=== PATIENT | male | born 1985 | race Caucasian/White ===

== ENCOUNTER 2017-01-18 14:33 | Emergency (ER) | payer OTHER ==
--- NOTE | 2017-01-18 14:42 | PDOC ---
History of Present Illness - General History Source: Patient, EMS Exam Limitations: No Limitations - History of Present Illness Initial Comments: 01/18/17 16:14 The patient is a 31 year old male brought via EMS, with a significant past medical history of, who presents to the emergency department overdosing on Heroin today. EMS notes that the patient's girlfriend found the patient unresponsive with a needle in his arm after she got out the shower, which is when she called EMS. Upon arrival as per EMS, they administered 1 mg of Narcan, which awoke the patient. The patient has a history of Heroin use, with the last one being 2 months ago. He notes that he has had overdose episodes in the past. The patient denies chest pain, shortness of breath, headache and dizziness. Denies fever, chills, nausea, vomit, diarrhea and constipation. Allergies: None Past surgical history: None reported Social history: Heroin use. Tobacco use. No alcohol use. <Caleb Rothman - Last Filed: 01/18/17 16:14> <Serafin Caldwell - Last Filed: 01/23/17 16:20> - General Chief Complaint: Overdose Stated Complaint: OVERDOSE Time Seen by Provider: 01/18/17 14:41 Past History <Caleb Rothman - Last Filed: 01/18/17 16:14> - Psycho/Social/Smoking Cessation Hx Anxiety: No Suicidal Ideation: No Smoking Status: Yes Smoking History: Current every day smoker Number of Cigarettes Smoked Daily: 7 Information on smoking cessation initiated: No 'Breaking Loose' booklet given: 02/13/14 Hx Alcohol Use: No <Serafin Caldwell - Last Filed: 01/23/17 16:20> - Past Medical History Allergies/Adverse Reactions: Allergies Allergy/AdvReac Type Severity Reaction Status Date / Time No Known Allergies Allergy Verified 01/18/17 14:38 Home Medications: Ambulatory Orders No Home Medications 0 dose .ROUTE UTDICT 02/13/14 Review of Systems - Review of Systems Able to Perform ROS?: Yes Comments:: 01/18/17 16:14 CONSTITUTIONAL: No fever, no chills, no fatigue EYES: No visual changes ENT: No ear pain, no sore throat CARDIOVASCULAR: No chest pain, no palpitations RESPIRATORY: No cough, no SOB GI: No abdominal pain, no nausea, no vomiting, no constipation, no diarrhea GENITOURINARY: No dysuria, no frequency, no hematuria MUSKULOSKELETAL: No backpain, no joint pain, no myalgias SKIN: No rash NEURO: No headache <DiegoananyaCaleb - Last Filed: 01/18/17 16:14> *Physical Exam - Vital Signs Last Vital Signs Temp Pulse Resp BP Pulse Ox 97.4 F L 122 H 16 153/104 100 01/18/17 14:39 01/18/17 14:39 01/18/17 14:39 01/18/17 14:39 01/18/17 14:39 - Physical Exam Comments: 01/18/17 16:14 CONSTITUTIONAL: Alert, anxious appearing HEAD: Normocephalic; atraumatic EYES: PERRL; EOM intact, pupils are at 3mm round and reactive bilaterally ENMT: External appears normal; normal oropharynx NECK: Supple; non-tender; no cervical lymphadenopathy CARD: Tachycardic. S1, S2; no murmurs, rubs, or gallops RESP: Normal chest excursion with respiration; breath sounds clear and equal bilaterally; no wheezes, rhonchi, or rales ABD: Soft, non-distended; non-tender; no palpable organomegaly, no palpable hernias EXT: Normal ROM in all four extremities; non-tender to palpation; distal pulses intact SKIN: Warm, dry, no rash NEURO: No focal neurological deficiencies. AO x 3, Cranial nerves II-XII intact. Moving all extremities. 5/5 strength in all extremities. <Caleb Rothman - Last Filed: 01/18/17 16:14> - Vital Signs Last Vital Signs Temp Pulse Resp BP Pulse Ox 97.4 F L 122 H 16 153/104 100 01/18/17 14:39 01/18/17 14:39 01/18/17 14:39 01/18/17 14:39 01/18/17 14:39 <Serafin Caldwell - Last Filed: 01/23/17 16:20> Medical Decision Making - Medical Decision Making 01/18/17 15:18 Patient is a 31-year-old male, brought in by EMS after he was found apneic and unresponsive after injecting heroin. Patient required 1 mg of Narcan to regain spontaneous respiration and normal mental status. On initial evaluation, patient is anxious appearing, tachycardic and hypertensive. Pupils are round and reactive, 3 mm bilaterally. No focal neurological deficits are noted. Patient will require a period of observation given the short half-life of Narcan. We'll administer additional doses of Narcan as needed. Will reassess. 01/18/17 16:02 Patient is noted to be somnolent but easily arousable. Entitle CO2 is noted to be 32. Pupils are round and reactive, 2 mm bilaterally. We'll continue to observe. We'll consider repeat Narcan. 01/18/17 16:18 Patient received Narcan-0.4 mg IV and is noted to be awake and alert, oriented 3. <Serafin Caldwell - Last Filed: 01/23/17 16:20> *DC/Admit/Observation/Transfer - Attestations Scribe Attestion: 01/18/17 16:15 Documentation prepared by Caleb Rothman, acting as medical dir for Serafin Caldwell MD <Caleb Rothman - Last Filed: 01/18/17 16:14> - Attestations Physician Attestion: 01/18/17 15:16 The documentation was prepared by the scribe under my direct supervision. I have reviewed the documentation which correctly represents the findings, medical decision-making and critical action taken by me. <Serafin Caldwell - Last Filed: 01/23/17 16:20> Diagnosis at time of Disposition: Heroin abuse - Discharge Dispostion Disposition: HOME Condition at time of disposition: Improved - Patient Instructions Printed Discharge Instructions: DI for Drug Abuse and Drug Addiction Additional Instructions: Please go to your local pharmacy and buy narcan. This medication may save your life.
[2017-01-18 14:43] VITALS: TEMP 97.4; BMI 23.5
[2017-01-18] MEDS ORDERED: NALOXONE HCL 0.4 MG/ML VIAL ONE (16:04)
[2017-01-18] MEDS ORDERED: NALOXONE HCL 0.4 MG/ML VIAL IVPUSH ONE (16:06)
--- NOTE | 2017-01-18 20:29 | PDOC ---
*Physical Exam - Vital Signs Last Vital Signs Temp Pulse Resp BP Pulse Ox 97.4 F L 90 20 129/89 100 01/18/17 14:39 01/18/17 16:33 01/18/17 16:33 01/18/17 16:33 01/18/17 16:33 ED Treatment Course - Medications Given in the ED: ED Medications Discontinued Medications Generic Name Dose Route Start Last Admin Trade Name Martell PRN Reason Stop Dose Admin Naloxone HCl 0.4 mg 01/18/17 16:06 01/18/17 16:33 Narcan - IVPUSH 01/18/17 16:07 0.4 mg ONCE ONE Administration Medical Decision Making - Medical Decision Making 01/18/17 20:27 Sign-out received from outgoing Emergency Physician Dr. Caldwell Pt interviewed and examined Ancillary studies reviewed Case discussed in detail with oncoming Emergency Physician including history, physical exam and ancillary studies. The patient has been observed for 6 hours. He has been breathing comfortably without any complications. Pt's girlfriend is here. Will discharge him with her. I discussed the physical exam findings, ancillary test results and final diagnoses with the patient. I answered all of the patient's questions. The patient was satisfied with the care received and felt comfortable with the discharge plan and treatment plan. The patient will call their primary care physician within 24 hours to arrange follow-up and will return to the Emergency Department with any new, persistant or worsening symptoms. *DC/Admit/Observation/Transfer Diagnosis at time of Disposition: Heroin abuse - Discharge Dispostion Disposition: HOME Condition at time of disposition: Improved Admit: No - Patient Instructions Printed Discharge Instructions: DI for Drug Abuse and Drug Addiction Additional Instructions: Please go to your local pharmacy and buy narcan. This medication may save your life.
[2017-01-18 20:40] VITALS: BP 121/77; PULSE 84
== END 2017-01-18 20:38 | disposition home or self-care (01) ==
LOC: JER 14:33
PROC: 3E033GC Introduction of Other Therapeutic Substance into Peripheral Vein, Percutaneous Approach (ICD-10-PCS; principal; 2017-01-18)
DX: T40.1X4A Poisoning by heroin, undetermined, initial encounter (principal); F11.10 Opioid abuse, uncomplicated; Y92.032 Bedroom in apartment as the place of occurrence of the external cause
CPT/HCPCS: 96374; 99283-25

== ENCOUNTER 2017-03-06 15:46 | Inpatient (IN) | payer OTHER ==
[~2017-03-06 15:46] MED LIST: NALOXONE HCL 0.4 MG/ML VIAL IM ONE; NALOXONE HCL 0.4 MG/ML VIAL IVPUSH ONE
--- NOTE | 2017-03-06 15:55 | PDOC ---
History of Present Illness - General History Source: Patient Exam Limitations: No Limitations - History of Present Illness Initial Comments: 03/06/17 16:06 The patient is a 31-year-old male with a significant past medical history of polysubstance abuse (heroin) who presents to the emergency department status post possible polysubstance overdose. Patient was rushed out of his mother's car by ER staff. Mother in the car confirmed heroin IV overdose as well as oral opiate abuse. Patient was placed on a stretcher and was administered 0.4 mg of IM Narcan and 1.0mg of IV Narcan. No response. Patient was subsequently intubated at 03:48PM. No other information obtainable. <Ruby Huff - Last Filed: 03/06/17 16:33> <Kit Calderon - Last Filed: 03/06/17 16:51> - General Chief Complaint: Overdose Stated Complaint: DRUG OVERDOSE Time Seen by Provider: 03/06/17 15:52 Past History <Ruby Huff - Last Filed: 03/06/17 16:33> - Psycho/Social/Smoking Cessation Hx Anxiety: No Suicidal Ideation: No Smoking Status: Yes Smoking History: Current every day smoker Number of Cigarettes Smoked Daily: 7 'Breaking Loose' booklet given: 02/13/14 Hx Alcohol Use: No <Kit Calderon - Last Filed: 03/06/17 16:51> - Past Medical History Allergies/Adverse Reactions: Allergies Allergy/AdvReac Type Severity Reaction Status Date / Time No Known Allergies Allergy Verified 03/06/17 16:07 Home Medications: Ambulatory Orders No Home Medications 0 dose .ROUTE UTDICT 02/13/14 Review of Systems - Review of Systems Able to Perform ROS?: No <Ruby Huff - Last Filed: 03/06/17 16:33> *Physical Exam - Vital Signs Last Vital Signs Temp Pulse Resp BP Pulse Ox 97.5 F L 114 H 20 152/101 100 03/06/17 15:56 03/06/17 15:56 03/06/17 15:56 03/06/17 15:56 03/06/17 15:56 - Physical Exam Comments: 03/06/17 16:06 GENERAL: Unresponsive to verbal, physical painful stimuli. Agonal / snorting respiration. HEENT: Normocephalic, atraumatic. Pupils are pinpoint. No conjunctival pallor. Sclera are non-icteric. Moist mucous membranes. Oropharynx is clear. NECK: Supple. Full ROM. No JVD. CARDIOVASCULAR: Regular rate and rhythm. No murmurs, rubs, or gallops. PULMONARY: Lungs clear to auscultation bilaterally. No wheezing, rales or rhonchi. ABDOMINAL: Soft. Non-tender. Non-distended. No rebound or guarding. No organomegaly. Normoactive bowel sounds. MUSCULOSKELETAL: Normal range of motion at all joints. No bony deformities or tenderness. No CVA tenderness. EXTREMITIES: No cyanosis. No clubbing. No edema. No calf tenderness. SKIN: Warm and dry. Normal capillary refill. No rashes. No jaundice. NEUROLOGICAL: Unresponsive to verbal, physical painful stimuli. Agonal / snorting respiration. <Ruby Huff - Last Filed: 03/06/17 16:33> Procedures - Intubation Time of Intubation: 03:48 Intubation Method: orotracheal Blade used: Mac (3) Tube Size (Fr): 7.5 Medications: Etomidate (10 mg administered at 03:46 PM), Succinylcholine (10 mg administered at 03:47) Tube position @ lip (cm): 22 Tube position confirmed by: Direct visualization, Chest x-ray, Breath sounds Breath Sounds after Intubation: equal Intubation Complications: no complications Post Intubation Xray: Yes <Ruby Huff - Last Filed: 03/06/17 16:33> - Intubation Intubation Method: nasotracheal Blade used: Mac Tube Size (Fr): 7.5 Medications: Etomidate, Succinylcholine Tube position @ lip (cm): 22 Tube position confirmed by: Direct visualization, CO2 detector, Chest x-ray, Breath sounds Breath Sounds after Intubation: equal Intubation Complications: no complications Post Intubation Xray: Yes <Kit Calderon - Last Filed: 03/06/17 16:51> Heart Score/ECG Review - ECG Intrepretation Comment:: 03/06/17 16:31 Sinus tachycardia at 106, normal axis, normal intervals, no ST changes <Kit Calderon - Last Filed: 03/06/17 16:51> Medical Decision Making - Critical Care Time Total Critical Care Time (minutes): 55 Critical Care Statement: The care of this patient involved high complexity decision making to prevent further life threatening deterioration of the patient 's condition and/or to evalute & treat vital organ system(s) failure or risk of failure. - Medical Decision Making 03/06/17 15:52 The patient is unresponsive to verbal stimuli, physical stimuli, pain He has agonal/snoring respirations His pupils are pinpoint His mother, who was in the car with him, confirms IV heroin abuse as well as oral opiate abuse She suspects overdose We remove the patient from the car, placed him on a stretcher, and administered 0.4 mg of intramuscular Narcan, with little improvement We ventillated him by BVM We placed an IV and immediately gave him 1 mg of IV Narcan Pupils dilated, respirations increased, he became slightly more responsive He was intubated using rapid sequence intubation There was no vomiting Breath sounds are equal bilaterally after intubation Will obtain chest x-ray, labs He will require admission 03/06/17 16:00 Will begin propofol drip for sedation Portable chest x-ray to confirm tube placement pending Clinical impression: Opiate overdose Hypoxemic respiratory failure Case discussed in detail with admitting provider including history, physical exam and ancillary studies. Admitting physician has assumed care for the patient, will follow all pending diagnostics and will complete the evaluation and treatment. A portion of this note was documented by scribe services under my direction. I have reviewed the details of the note, within reason, and agree with the documentation with the following case summary and management plan written by me. 03/06/17 16:24 Chest x-ray emergency Department interpretation: Increased interstitial markings bilaterally, with left sided predominance His mother denied infectious symptoms It is possible that this represents noncardiogenic pulmonary edema rather than infection Will administer Zosyn and Azithromycin to cover community-acquired typical and atypical uli as well as aspiration uli If this is aspiration pneumonitis, I would favor antibiotic treatment given the severity of his chest x-ray His rectal temperature is normal He is tachycardic and tachycardic, giving him 2 Sirs criteria and a chest x-ray that is consistent with possible pneumonia He meets diagnostic criteria for sepsis Sepsis order set was initiated 03/06/17 16:25 03/06/17 16:51 Labs pending Case discussed in detail with oncoming Emergency Physician including history, physical exam and ancillary studies. Oncoming Emergency Physician will follow labs. <Kit Calderon - Last Filed: 03/06/17 16:51> *DC/Admit/Observation/Transfer <Ruby Huff - Last Filed: 03/06/17 16:33> - Discharge Dispostion Admit: Yes <Kit Calderon - Last Filed: 03/06/17 16:51> Diagnosis at time of Disposition: Heroin overdose, Acute hypoxemic respiratory failure
[2017-03-06 15:57] VITALS: BMI 37.5
[2017-03-06] MEDS ORDERED: ONDANSETRON 4 MG/2 ML VIAL IVPB ONE (15:57)
[2017-03-06] MEDS ORDERED: PROPOFOL 200 MG/20 ML VIAL IVPUSH ONE (15:57)
[2017-03-06] MEDS ORDERED: PROPOFOL 100 ML ONE (15:58)
[2017-03-06] MEDS ORDERED: ONDANSETRON 4 MG/2 ML VIAL ONE (15:58)
[2017-03-06] MEDS ORDERED: SODIUM CHLORIDE 1,000 ML IV SCH (16:00)
[2017-03-06] MEDS: PROPOFOL 100 ML IVPB SCH (16:08)
[2017-03-06] MEDS ORDERED: SUCCINYLCHOLINE CHLORIDE 200 MG/10 ML VIAL IVPUSH ONE (16:11)
[2017-03-06] MEDS ORDERED: ETOMIDATE 20 MG/10 ML AMPUL IVPUSH ONE (16:11)
[2017-03-06] MEDS ORDERED: AZITHROMYCIN IVPB 500 MG in DEXTROSE 5%-WATER - 250 ML IVPB ONE (16:19)
[2017-03-06] MEDS ORDERED: PIPERACILLIN/TAZOB 4.5 GM 4.5 GM in DEXTROSE 5%-WATER 100 ML IVPB ONE (16:19)
[2017-03-06] MEDS ORDERED: SODIUM CHLORIDE 1,000 ML IV STA (16:20)
[2017-03-06] MEDS ORDERED: AZITHROMYCIN IVPB 250 ML IVPB ONE (17:03)
[2017-03-06] MEDS ORDERED: PIPERACILLIN/TAZOB 4.5 GM 100 ML IVPB ONE (17:04)
[2017-03-06 17:14] LABS: ARTERIAL BLD GAS O2 SATURATION 99.2 % (90-98.9); ARTERIAL BLOOD GAS BASE EXCESS 1.1 meq/l (-2-2); ARTERIAL BLOOD GAS HCO3 25.2 meq/L (22-26); ARTERIAL BLOOD GAS pH 7.41 (7.35-7.45)
[2017-03-06 17:15] LABS: ALLENS TEST POSITIVE; ART PUNCT SITE RIGHT RADIAL; LPM/O2% 50; MECH. VENT. ESPRIT; PT. ON O2? YES; TYPE OF O2 OT; VENT RATE 14; VT/PRESS 500
[2017-03-06 17:28] LABS: BASOPHIL 0.5 % (0-2.0); EOSINOPHIL 1.2 % (0-4.5); MCH 29.5 pg (25.7-33.7); MCHC 33.8 g/dl (32.0-35.9); MEAN CELL VOLUME 87.3 fl (80-96); NEUTROPHILS 84.9 % (42.8-82.8); PLATELET COUNT 211 K/MM3 (134-434); RDW 13.9 % (11.9-15.9); WHITE BLOOD COUNT 10.4 K/mm3 (4.0-10.0)
[2017-03-06 17:30] LABS: URINE APPEARANCE CLEAR; URINE BILIRUBIN NEGATIVE (NEGATIVE); URINE BLOOD NEGATIVE (NEGATIVE); URINE COLOR YELLOW; URINE GLUCOSE (UA) 1+ (NEGATIVE); URINE KETONE TRACE (NEGATIVE); URINE LEUK ESTERASE NEGATIVE (NEGATIVE); URINE NITRITE NEGATIVE (NEGATIVE); URINE PROTEIN NEGATIVE (NEGATIVE); URINE UROBILINOGEN 2.0 E.U/dl E.U./dl (0.2-1.0)
[2017-03-06 17:41] LABS: URINE MARIJUANA THC POSITIVE ng/ml (CUTOFF=50)
[2017-03-06 17:47] LABS: INR 1.04 (0.82-1.09); PROTHROMBIN TIME (PATIENT) 11.4 SEC (9.98-11.88)
[2017-03-06 17:50] LABS: ACTIVATED PTT 32.8 SECONDS (26.9-34.4)
[2017-03-06 18:00] LABS: ALCOHOL < 5.0 mg/dl (0-5); SALICYLATE < 4.0 mg/dl (0.0-30.0)
[2017-03-06 20:17] LABS: ALBUMIN 3.8 g/dl (3.4-5.0); ANION GAP 12 (8-16); BILIRUBIN,TOTAL 0.7 mg/dL (0.2-1.0); CALCIUM 8.1 mg/dL (8.5-10.1); CO2 25 mmol/L (21-32); COCKROFT - GAULT 163.29; GLUCOSE,RANDOM 85 mg/dL (74-106)
[2017-03-06 20:18] LABS: TROPONIN I < 0.02 ng/ml (0.00-0.05)
[2017-03-06 20:18] LABS: ALK PHOS 86 U/L (45-117)
[2017-03-06 20:23] LABS: TOT PROT 7.4 g/dl (6.4-8.2)
[2017-03-06 20:24] LABS: SGOT/AST 37 U/L (15-37); SGPT/ALT 25 U/L (12-78)
[2017-03-06] MEDS ORDERED: DEXTROSE 5%-0.45% SALINE 1,000 ML IV SCH (21:30)
[2017-03-06] MEDS: HEPARIN NA (PORCINE) 5,000 UNITS/ML 1ML VIAL SQ SCH (22:25)
--- NOTE | 2017-03-06 22:49 | CONSULT ---
Consult Consult Specialty:: Pulm/ Critical Care Referred by:: Gavi Dnaiel Reason for Consultation:: overdose - History of Present Illness Chief Complaint: overdose History of Present Illness: 31 y/o man with history of polysubstance abuse (heroin) who presented with suspected polysubstance overdose. Per pts mother he has longstanding history of heroin and opiate abuse. She is visiting pt from out of town and reports that had he has been on a kendrick this week, with excessive IV drug use. She said she saw him earlier in the day wandering in the street and about to pass out from heat, and she transported him to a friends house. When she picked him up later she noted that he was nearly unable to walk, his friend had to catch him. At this point she brought him to [facility] ED. In the ED, VS: afebrile, HR 75, BP 152/101, RR 16, satting 100%. He was unresponsive to verbal/ painful stim and was sonorous. Pupils pinpoint. Subsequently with shallow agonal respirations and was given narcan 1mg with increased respirations, pupil dilation, but minimal overall improvement in mental status and was intubated. Labs notable for WBC 10, Utox (+) for opiates, benzos, THC. CXR notable for questionable left upper lobe infiltrate and pt was given zosyn and azithro for possible aspiration pna/ pneumonitis. He was sedated with propofol and transferred to ICU. Pt arrived in ICU sedated and intubated, hemodynamically stable. Poison control contacted and they recd supportive care. They also recd possible CT head in future if pt did not wake off of sedation. Zosyn and azithro continued. Active Medications Azithromycin (Zithromax 500mg Ivpb (Pre-Docked)) 500 mg IVPB DAILY [facility] Heparin Sodium (Porcine) (Heparin -) 5,000 unit SQ BID ADALI Last Admin: 03/06/17 22:25 Dose: 5,000 unit Propofol (Diprivan -) 100 mls @ 3.266 mls/hr IVPB TITR ADALI; 5 MCG/KG/MIN PRN Reason: Protocol Last Titration: 03/06/17 16:08 Dose: 20 mcg/kg/min Dextrose/Sodium Chloride (D5-1/2ns -) 1,000 mls @ 75 mls/hr IV ASDIR ADALI Last Admin: 03/06/17 22:00 Dose: 75 mls/hr Piperacillin Sod/Tazobactam Sod (Zosyn 3.375gm Ivpb (Pre-Docked)) 3.375 gm IVPB Q8H-IV ADALI PRN Reason: Protocol Piperacillin Sod/Tazobactam Sod (Zosyn 3.375gm Ivpb (Pre-Docked)) 3.375 gm IVPB ONCE ONE PRN Reason: Protocol Stop: 03/07/17 02:01 - History Source History Provided By: Family Member, Medical Record Limitations to Obtaining History: Intubated - Past Medical History Psych: Yes: Addictions - Alcohol/Substance Use Hx Alcohol Use: No History of Substance Use: reports: Heroin, Marijuana - Smoking History Smoking history: Current every day smoker Aproximately how many cigarettes per day: 7 Home Medications - Allergies Allergies/Adverse Reactions: Allergies Allergy/AdvReac Type Severity Reaction Status Date / Time No Known Allergies Allergy Verified 03/06/17 16:07 - Home Medications Home Medications: Ambulatory Orders No Home Medications 0 dose .ROUTE UTDICT 02/13/14 Family Disease History - Family Disease History Family History: Unable to Obtain Review of Systems Unable to obtain ROS, reason: pt intubated, unresponsiv Physical Exam Vital Signs: Vital Signs Temperature 97.5 F L 03/06/17 15:56 Pulse Rate 75 03/06/17 20:31 Respiratory Rate 16 03/06/17 20:31 Blood Pressure 123/90 03/06/17 20:31 O2 Sat by Pulse Oximetry (%) 100 03/06/17 20:31 Eyes: Yes: Other (pinpoint pupils) HENT: Yes: Normocephalic, Other (poor dentition) Cardiovascular: Yes: Regular Rate and Rhythm, S1, S2. No: Gallop, Murmur, Rub Respiratory: Yes: CTA Bilaterally, Intubated, Mechanically Ventilated Gastrointestinal: Yes: Normal Bowel Sounds Extremities: Yes: WNL Edema: No Peripheral Pulses WNL: Yes Integumentary: Yes: Tattoos Neurological: Yes: Other (sedated) Labs: CBC, BMP 03/06/17 16:45 03/06/17 16:45 Imaging - Results Chest X-ray: Report Reviewed, Image Reviewed Problem List - Problems (1) Acute hypoxemic respiratory failure Code(s): J96.01 - ACUTE RESPIRATORY FAILURE WITH HYPOXIA (2) Heroin overdose Code(s): T40.1X1A - POISONING BY HEROIN, ACCIDENTAL (UNINTENTIONAL), INIT ENCNTR (3) Heroin abuse Code(s): F11.10 - OPIOID ABUSE, UNCOMPLICATED Assessment/Plan Assessment/Plan: 31 y/o man with PSA admitted with suspected herion/ opiate overdose and resultant respiratory failure -supportive care for heroin/ opiate OD -continue telemetry -continue mechanical ventilation - check ABG to ensure proper ventilation, wean FiO2 as able -continue zosyn/ azithro for possible CAP/ aspiration PNA/ pneumonitis -EKG -continue propofol for now, lighten in am and assess mental status - consider CT head if altered -SQ heparin and Pepcid for GI ppx -IV fluids as needed
[2017-03-06 23:33] LABS: ARTERIAL BLD GAS O2 SATURATION 99.7 % (90-98.9); ARTERIAL BLOOD GAS BASE EXCESS 0.9 meq/l (-2-2); ARTERIAL BLOOD GAS HCO3 25.9 meq/L (22-26); ARTERIAL BLOOD GAS pH 7.38 (7.35-7.45)
[2017-03-06 23:34] LABS: ALLENS TEST POSITIVE; ART PUNCT SITE RIGHT RADIAL; LPM/O2% 50%; MECH. VENT. Y; PT. ON O2? YES; TYPE OF O2 VENT; VENT RATE 16; VT/PRESS 400
[2017-03-07] MEDS: PROPOFOL 100 ML IVPB SCH ×2 (01:00→09:53)
--- NOTE | 2017-03-07 01:43 | HP ---
Admitting History and Physical - Past Medical History Psych: Yes: Addictions - Smoking History Smoking history: Current every day smoker Aproximately how many cigarettes per day: 7 - Alcohol/Substance Use Hx Alcohol Use: No History of Substance Use: reports: Heroin, Marijuana Home Medications - Allergies Allergies/Adverse Reactions: Allergies Allergy/AdvReac Type Severity Reaction Status Date / Time No Known Allergies Allergy Verified 03/06/17 16:07 - Home Medications Home Medications: Ambulatory Orders No Home Medications 0 dose .ROUTE UTDICT 02/13/14 Physical Examination Vital Signs: Vital Signs Temperature 98.7 F 03/06/17 22:00 Pulse Rate 74 03/06/17 23:00 Respiratory Rate 18 03/06/17 23:48 Blood Pressure 126/84 03/06/17 23:00 O2 Sat by Pulse Oximetry (%) 100 03/06/17 20:31 Labs: CBC, BMP 03/06/17 16:45 03/06/17 16:45
[2017-03-07] MEDS ORDERED: PIPERACILLIN/TAZOB 3.375 GM/50 ML PRE-DOCKED IVPB ONE (02:00)
[2017-03-07] MEDS ORDERED: MIDAZOLAM HCL 2 MG/2 ML SINGLE DOSE VIAL IVPUSH ONE (05:42)
[2017-03-07 06:17] LABS: BASOPHIL 0.4 % (0-2.0); EOSINOPHIL 3.2 % (0-4.5); MCH 28.8 pg (25.7-33.7); MCHC 33.7 g/dl (32.0-35.9); MEAN CELL VOLUME 85.6 fl (80-96); MEAN PLT VOLUME 8.2 fl (7.5-11.1); NEUTROPHILS 54.4 % (42.8-82.8); PLATELET COUNT 202 K/MM3 (134-434); RDW 13.6 % (11.9-15.9); WHITE BLOOD COUNT 7.1 K/mm3 (4.0-10.0)
[2017-03-07 06:58] LABS: ALBUMIN 2.9 g/dl (3.4-5.0); ANION GAP 9 (8-16); CALCIUM 7.9 mg/dL (8.5-10.1); CO2 27 mmol/L (21-32); GLUCOSE,RANDOM 82 mg/dL (74-106); SGOT/AST 18 U/L (15-37); SGPT/ALT 15 U/L (12-78)
[2017-03-07 07:01] LABS: ALK PHOS 68 U/L (45-117); BILIRUBIN,TOTAL 0.6 mg/dL (0.2-1.0); COCKROFT - GAULT 204.11; CREATININE 0.8 mg/dL (0.7-1.3); TOT PROT 5.5 g/dl (6.4-8.2)
[2017-03-07] MEDS ORDERED: PROPOFOL 100 ML ONE (09:04)
[2017-03-07] MEDS: HEPARIN NA (PORCINE) 5,000 UNITS/ML 1ML VIAL SQ SCH (09:53)
[2017-03-07] MEDS ORDERED: AZITHROMYCIN IVPB 500 MG/250 ML D5W PRE-DOCKED IVPB SCH (10:00)
[2017-03-07] MEDS ORDERED: CEFTRIAXONE 1 GM in DEXTROSE 5%-WATER - 50 ML IVPB SCH (10:00)
[2017-03-07] MEDS ORDERED: FAMOTIDINE 20 MG/50 ML IVPB 50 ML IVPB SCH (10:00)
[2017-03-07] MEDS ORDERED: PIPERACILLIN/TAZOB 3.375 GM/50 ML PRE-DOCKED IVPB SCH (10:00)
[2017-03-07] MEDS ORDERED: cefTRIAXone 1 GM/50 ML BAG (PRE-DOCKED) IVPB SCH (10:00)
[2017-03-07] MEDS ORDERED: AZITHROMYCIN IVPB 500 MG in DEXTROSE 5%-WATER - 250 ML IVPB SCH (10:00)
--- NOTE | 2017-03-07 11:25 | PN ---
Physical Exam: SUBJECTIVE: Patient seen and examined at bedside this AM in ICU. Intubated & sedated. Tolerated CPAP trial well & was extubated with good oxygen saturation on room air. Patient is AAO and understands his clinical course thus far and proposed treatment. He is adamant that he goes home today & refuses to stay for even 1 more day. OBJECTIVE: Vital Signs Period Temp Pulse Resp BP Sys/Pryor Pulse Ox Last 24 Hr 97.5 F-99.3 F 16-114 14-26 116-152/83-101 99-100 GENERAL: The patient is awake, alert, and fully oriented, in no acute distress. Mildly lethargic HEENT:Atraumatic, EOMI, PERRLA, No lymphadenopathy noted, moist membranes LUNGS: Breath sounds moderately diminished left lung base, no wheezing ro crackles noted HEART: Regular rate and rhythm, S1, S2 without murmur, rub or gallop. ABDOMEN: Soft, nontender, nondistended, normoactive bowel sounds EXTREMITIES: 2+ pulses, warm, well-perfused, no edema. NEUROLOGICAL: Cranial nerves II through XII grossly intact. Normal speech, gait not observed. PSYCH: Normal mood, normal affect. Midlly lethargic. SKIN: Warm, dry, normal turgor, no rashes or lesions noted Laboratory Results - last 24 hr 03/06/17 03/06/17 03/06/17 16:29 16:29 16:45 WBC 10.4 H D RBC 4.53 Hgb 13.3 Hct 39.5 MCV 87.3 MCHC 33.8 RDW 13.9 Plt Count 211 MPV 9.0 D Neutrophils % 84.9 H D Lymphocytes % 8.6 D Monocytes % 4.8 Eosinophils % 1.2 Basophils % 0.5 INR 1.04 PTT (Actin FS) 32.8 Puncture Site ABG pH ABG pCO2 at Pt Temp ABG pO2 at Pt Temp ABG HCO3 ABG O2 Sat (Measured) ABG O2 Content ABG Base Excess Stewart Test O2 Delivery Device Oxygen Flow Rate Vent Mode Vent Rate Mechanical Rate PEEP Pressure Support Vent Sodium Potassium Chloride Carbon Dioxide Anion Gap BUN Creatinine Creat Clearance w eGFR Random Glucose Lactic Acid Calcium Total Bilirubin AST ALT Alkaline Phosphatase Creatine Kinase 101 Troponin I < 0.02 Total Protein Albumin Urine Color Urine Appearance Urine pH Ur Specific [place] Urine Protein Urine Glucose (UA) Urine Ketones Urine Blood Urine Nitrite Urine Bilirubin Urine Urobilinogen Ur Leukocyte Esterase Salicylates Opiates Screen Methadone Screen Acetaminophen Barbiturate Screen Phencyclidine Screen Ur Amphetamines Screen MDMA (Ecstasy) Screen Benzodiazepines Screen Cocaine Screen U Marijuana (THC) Screen Alcohol, Quantitative 03/06/17 03/06/17 03/06/17 16:45 16:45 16:50 WBC RBC Hgb Hct MCV MCHC RDW Plt Count MPV Neutrophils % Lymphocytes % Monocytes % Eosinophils % Basophils % INR PTT (Actin FS) Puncture Site ABG pH ABG pCO2 at Pt Temp ABG pO2 at Pt Temp ABG HCO3 ABG O2 Sat (Measured) ABG O2 Content ABG Base Excess Stewart Test O2 Delivery Device Oxygen Flow Rate Vent Mode Vent Rate Mechanical Rate PEEP Pressure Support Vent Sodium 138 Potassium 3.8 Chloride 101 Carbon Dioxide 25 Anion Gap 12 BUN 17 D Creatinine 1.0 D Creat Clearance w eGFR > 60 Random Glucose 85 Lactic Acid TNP Calcium 8.1 L Total Bilirubin 0.7 D AST 37 D ALT 25 Alkaline Phosphatase 86 D Creatine Kinase Troponin I Total Protein 7.4 Albumin 3.8 Urine Color Urine Appearance Urine pH Ur Specific [place] Urine Protein Urine Glucose (UA) Urine Ketones Urine Blood Urine Nitrite Urine Bilirubin Urine Urobilinogen Ur Leukocyte Esterase Salicylates < 4.0 Opiates Screen Methadone Screen Acetaminophen < 2.0 L Barbiturate Screen Phencyclidine Screen Ur Amphetamines Screen MDMA (Ecstasy) Screen Benzodiazepines Screen Cocaine Screen U Marijuana (THC) Screen Alcohol, Quantitative < 5.0 03/06/17 03/06/17 03/06/17 17:00 17:03 17:10 WBC RBC Hgb Hct MCV MCHC RDW Plt Count MPV Neutrophils % Lymphocytes % Monocytes % Eosinophils % Basophils % INR PTT (Actin FS) Puncture Site Right radial ABG pH 7.41 ABG pCO2 at Pt Temp 40.4 ABG pO2 at Pt Temp 125.0 H ABG HCO3 25.2 ABG O2 Sat (Measured) 99.2 H ABG O2 Content 16.5 ABG Base Excess 1.1 Stewart Test Positive O2 Delivery Device Ot Oxygen Flow Rate 50 Vent Mode Ac Vent Rate 14 Mechanical Rate Esprit PEEP 0.0 Pressure Support Vent 500 Sodium Potassium Chloride Carbon Dioxide Anion Gap BUN Creatinine Creat Clearance w eGFR Random Glucose Lactic Acid Calcium Total Bilirubin AST ALT Alkaline Phosphatase Creatine Kinase Troponin I Total Protein Albumin Urine Color Yellow Urine Appearance Clear Urine pH 5.0 Ur Specific [place] 1.025 Urine Protein Negative Urine Glucose (UA) 1+ H Urine Ketones Trace H Urine Blood Negative Urine Nitrite Negative Urine Bilirubin Negative Urine Urobilinogen 2.0 e.u/dl Ur Leukocyte Esterase Negative Salicylates Opiates Screen Positive Methadone Screen Negative Acetaminophen Barbiturate Screen Negative Phencyclidine Screen Negative Ur Amphetamines Screen Negative MDMA (Ecstasy) Screen Negative Benzodiazepines Screen Positive Cocaine Screen Negative U Marijuana (THC) Screen Positive Alcohol, Quantitative 03/06/17 03/07/17 03/07/17 23:31 05:20 05:20 WBC 7.1 D RBC 3.92 L Hgb 11.3 L D Hct 33.6 L MCV 85.6 MCHC 33.7 RDW 13.6 Plt Count 202 MPV 8.2 Neutrophils % 54.4 D Lymphocytes % 33.6 D Monocytes % 8.4 Eosinophils % 3.2 D Basophils % 0.4 INR PTT (Actin FS) Puncture Site Right radial ABG pH 7.38 ABG pCO2 at Pt Temp 45.1 H ABG pO2 at Pt Temp 179.0 H* ABG HCO3 25.9 ABG O2 Sat (Measured) 99.7 H* ABG O2 Content 18.7 ABG Base Excess 0.9 Stewart Test Positive O2 Delivery Device Vent Oxygen Flow Rate 50% Vent Mode Ac Vent Rate 16 Mechanical Rate Y PEEP 5.0 Pressure Support Vent 400 Sodium 141 Potassium 3.6 Chloride 105 Carbon Dioxide 27 Anion Gap 9 BUN 12 D Creatinine 0.8 Creat Clearance w eGFR > 60 Random Glucose 82 Lactic Acid Calcium 7.9 L Total Bilirubin 0.6 AST 18 D ALT 15 D Alkaline Phosphatase 68 D Creatine Kinase Troponin I Total Protein 5.5 L D Albumin 2.9 L D Urine Color Urine Appearance Urine pH Ur Specific [place] Urine Protein Urine Glucose (UA) Urine Ketones Urine Blood Urine Nitrite Urine Bilirubin Urine Urobilinogen Ur Leukocyte Esterase Salicylates Opiates Screen Methadone Screen Acetaminophen Barbiturate Screen Phencyclidine Screen Ur Amphetamines Screen MDMA (Ecstasy) Screen Benzodiazepines Screen Cocaine Screen U Marijuana (THC) Screen Alcohol, Quantitative 03/07/17 09:40 WBC RBC Hgb Hct MCV MCHC RDW Plt Count MPV Neutrophils % Lymphocytes % Monocytes % Eosinophils % Basophils % INR PTT (Actin FS) Puncture Site ABG pH ABG pCO2 at Pt Temp ABG pO2 at Pt Temp ABG HCO3 ABG O2 Sat (Measured) ABG O2 Content ABG Base Excess Stewart Test O2 Delivery Device Oxygen Flow Rate Vent Mode Vent Rate Mechanical Rate PEEP Pressure Support Vent Sodium Potassium Chloride Carbon Dioxide Anion Gap BUN Creatinine Creat Clearance w eGFR Random Glucose Lactic Acid 0.720 Calcium Total Bilirubin AST ALT Alkaline Phosphatase Creatine Kinase Troponin I Total Protein Albumin Urine Color Urine Appearance Urine pH Ur Specific [place] Urine Protein Urine Glucose (UA) Urine Ketones Urine Blood Urine Nitrite Urine Bilirubin Urine Urobilinogen Ur Leukocyte Esterase Salicylates Opiates Screen Methadone Screen Acetaminophen Barbiturate Screen Phencyclidine Screen Ur Amphetamines Screen MDMA (Ecstasy) Screen Benzodiazepines Screen Cocaine Screen U Marijuana (THC) Screen Alcohol, Quantitative Active Medications Generic Name Dose Route Start Last Admin Trade Name Freq PRN Reason Stop Dose Admin Azithromycin 500 mg 03/07/17 10:00 03/07/17 09:53 Zithromax 500mg Ivpb (Pre-Docked) IVPB 500 mg DAILY ADALI Administration Heparin Sodium (Porcine) 5,000 unit 03/06/17 22:00 03/07/17 09:53 Heparin - SQ 5,000 unit BID ADALI Administration Propofol 100 mls @ 3.266 mls/hr 03/06/17 16:00 03/07/17 09:53 Diprivan - IVPB 26.127 mls/hr TITR ADALI Administration Protocol 5 MCG/KG/MIN Dextrose/Sodium Chloride 1,000 mls @ 75 mls/hr 03/06/17 21:30 03/06/17 22:00 D5-1/2ns - IV 75 mls/hr ASDIR ADALI Administration Famotidine/Sodium Chloride 50 mls @ 100 mls/hr 03/07/17 10:00 03/07/17 09:52 Pepcid 20 Mg Premixed Ivpb - IVPB 100 mls/hr BID ADALI Administration Piperacillin Sod/Tazobactam Sod 3.375 gm 03/07/17 10:00 Zosyn 3.375gm Ivpb (Pre-Docked) IVPB Q8H-IV ADALI Protocol ASSESSMENT/PLAN: 31 year old male with polysubstance abuse history (opiates, benzos) who presented to ED s/p oral opiate/Xanax overdose. Intubated to protect airway after poor response to Narcan x2. #Acute Polysubstance overdose, requiring intubation -Narcan given x2 -Extubated this AM & saturating well on room air -discussed detox, rehab (inpatient & outpatient) & importance of a consult with Dr Andrei Smith; patient uninterested at present, states he may followup as an outpatient #CARMELLA Infiltrate, Community acquired PNA vs aspiration PNA -Azithromycin, Zosyn started in ED -Cultures sent & pending -IVF D5-1/2NS @75cc/hr Prophylaixs -Heparin 5000BID -Pepcid BID -NPO -IVF, as above -monitor electrolytes DISPO: PATIENT STATES HE WANTS TO SIGN OUT AMA; CALLED PLACED TO DR ALMONTE PMD Visit type - Emergency Visit Emergency Visit: Yes ED Registration Date: 03/06/17 Care time: The patient presented to the Emergency Department on the above date and was hospitalized for further evaluation of their emergent condition. - New Patient This patient is new to me today: Yes Date on this admission: 03/07/17 - Critical Care Critical Care patient: Yes Total Critical Care Time (in minutes): 50 Critical Care Statement: The care of this patient involved high complexity decision making to prevent further life threatening deterioration of the patient 's condition and/or to evalute & treat vital organ system(s) failure or risk of failure.
--- NOTE | 2017-03-07 11:50 | PN ---
Teaching Attending Note Name of Resident: Xander Vera ATTENDING PHYSICIAN STATEMENT I saw and evaluated the patient. I reviewed the resident's note and discussed the case with the resident. I agree with the resident's findings and plan as documented. SUBJECTIVE: Patient seen and examined in the ICU. Intubated and on IV propofol. He is easily awoken and able to move all extremities and follow commands. No pressors. Intake & Output 03/04/17 03/05/17 03/06/17 03/07/17 23:59 23:59 23:59 23:59 Intake Total 175 525 Output Total 50 800 Balance 125 -275 Weight 240 lb Last Vital Signs Temp Pulse Resp BP Pulse Ox 97.8 F 82 14 128/86 100 03/07/17 10:00 03/07/17 10:24 03/07/17 10:00 03/07/17 10:00 03/07/17 10:24 Active Medications Azithromycin (Zithromax 500mg Ivpb (Pre-Docked)) 500 mg IVPB DAILY COUNTS INCLUDE 234 BEDS AT THE [facility] Last Admin: 03/07/17 09:53 Dose: 500 mg Heparin Sodium (Porcine) (Heparin -) 5,000 unit SQ BID COUNTS INCLUDE 234 BEDS AT THE [facility] Last Admin: 03/07/17 09:53 Dose: 5,000 unit Propofol (Diprivan -) 100 mls @ 3.266 mls/hr IVPB TITR ADALI; 5 MCG/KG/MIN PRN Reason: Protocol Last Admin: 03/07/17 09:53 Dose: 26.127 mls/hr Dextrose/Sodium Chloride (D5-1/2ns -) 1,000 mls @ 75 mls/hr IV ASDIR COUNTS INCLUDE 234 BEDS AT THE [facility] Last Admin: 03/06/17 22:00 Dose: 75 mls/hr Famotidine/Sodium Chloride (Pepcid 20 Mg Premixed Ivpb -) 50 mls @ 100 mls/hr IVPB BID COUNTS INCLUDE 234 BEDS AT THE [facility] Last Admin: 03/07/17 09:52 Dose: 100 mls/hr Piperacillin Sod/Tazobactam Sod (Zosyn 3.375gm Ivpb (Pre-Docked)) 3.375 gm IVPB Q8H-IV ADALI PRN Reason: Protocol Eyes: Yes: Reactive HENT: Yes: Normocephalic, Other (poor dentition) Cardiovascular: Yes: Regular Rate and Rhythm, S1, S2. No: Gallop, Murmur, Rub Respiratory: Yes: CTA Bilaterally, Intubated, Mechanically Ventilated Gastrointestinal: Yes: Normal Bowel Sounds Extremities: Yes: WNL Edema: No Peripheral Pulses WNL: Yes Integumentary: Yes: Tattoos Neurological: Yes: non-focal Labs: Laboratory Results - last 24 hr 03/06/17 03/06/17 03/06/17 16:29 16:29 16:45 WBC 10.4 H D RBC 4.53 Hgb 13.3 Hct 39.5 MCV 87.3 MCHC 33.8 RDW 13.9 Plt Count 211 MPV 9.0 D Neutrophils % 84.9 H D Lymphocytes % 8.6 D Monocytes % 4.8 Eosinophils % 1.2 Basophils % 0.5 INR 1.04 PTT (Actin FS) 32.8 Puncture Site ABG pH ABG pCO2 at Pt Temp ABG pO2 at Pt Temp ABG HCO3 ABG O2 Sat (Measured) ABG O2 Content ABG Base Excess Stewart Test O2 Delivery Device Oxygen Flow Rate Vent Mode Vent Rate Mechanical Rate PEEP Pressure Support Vent Sodium Potassium Chloride Carbon Dioxide Anion Gap BUN Creatinine Creat Clearance w eGFR Random Glucose Lactic Acid Calcium Total Bilirubin AST ALT Alkaline Phosphatase Creatine Kinase 101 Troponin I < 0.02 Total Protein Albumin Urine Color Urine Appearance Urine pH Ur Specific [place] Urine Protein Urine Glucose (UA) Urine Ketones Urine Blood Urine Nitrite Urine Bilirubin Urine Urobilinogen Ur Leukocyte Esterase Salicylates Opiates Screen Methadone Screen Acetaminophen Barbiturate Screen Phencyclidine Screen Ur Amphetamines Screen MDMA (Ecstasy) Screen Benzodiazepines Screen Cocaine Screen U Marijuana (THC) Screen Alcohol, Quantitative 03/06/17 03/06/17 03/06/17 16:45 16:45 16:50 WBC RBC Hgb Hct MCV MCHC RDW Plt Count MPV Neutrophils % Lymphocytes % Monocytes % Eosinophils % Basophils % INR PTT (Actin FS) Puncture Site ABG pH ABG pCO2 at Pt Temp ABG pO2 at Pt Temp ABG HCO3 ABG O2 Sat (Measured) ABG O2 Content ABG Base Excess Stewart Test O2 Delivery Device Oxygen Flow Rate Vent Mode Vent Rate Mechanical Rate PEEP Pressure Support Vent Sodium 138 Potassium 3.8 Chloride 101 Carbon Dioxide 25 Anion Gap 12 BUN 17 D Creatinine 1.0 D Creat Clearance w eGFR > 60 Random Glucose 85 Lactic Acid TNP Calcium 8.1 L Total Bilirubin 0.7 D AST 37 D ALT 25 Alkaline Phosphatase 86 D Creatine Kinase Troponin I Total Protein 7.4 Albumin 3.8 Urine Color Urine Appearance Urine pH Ur Specific [place] Urine Protein Urine Glucose (UA) Urine Ketones Urine Blood Urine Nitrite Urine Bilirubin Urine Urobilinogen Ur Leukocyte Esterase Salicylates < 4.0 Opiates Screen Methadone Screen Acetaminophen < 2.0 L Barbiturate Screen Phencyclidine Screen Ur Amphetamines Screen MDMA (Ecstasy) Screen Benzodiazepines Screen Cocaine Screen U Marijuana (THC) Screen Alcohol, Quantitative < 5.0 03/06/17 03/06/17 03/06/17 17:00 17:03 17:10 WBC RBC Hgb Hct MCV MCHC RDW Plt Count MPV Neutrophils % Lymphocytes % Monocytes % Eosinophils % Basophils % INR PTT (Actin FS) Puncture Site Right radial ABG pH 7.41 ABG pCO2 at Pt Temp 40.4 ABG pO2 at Pt Temp 125.0 H ABG HCO3 25.2 ABG O2 Sat (Measured) 99.2 H ABG O2 Content 16.5 ABG Base Excess 1.1 Stewart Test Positive O2 Delivery Device Ot Oxygen Flow Rate 50 Vent Mode Ac Vent Rate 14 Mechanical Rate Esprit PEEP 0.0 Pressure Support Vent 500 Sodium Potassium Chloride Carbon Dioxide Anion Gap BUN Creatinine Creat Clearance w eGFR Random Glucose Lactic Acid Calcium Total Bilirubin AST ALT Alkaline Phosphatase Creatine Kinase Troponin I Total Protein Albumin Urine Color Yellow Urine Appearance Clear Urine pH 5.0 Ur Specific [place] 1.025 Urine Protein Negative Urine Glucose (UA) 1+ H Urine Ketones Trace H Urine Blood Negative Urine Nitrite Negative Urine Bilirubin Negative Urine Urobilinogen 2.0 e.u/dl Ur Leukocyte Esterase Negative Salicylates Opiates Screen Positive Methadone Screen Negative Acetaminophen Barbiturate Screen Negative Phencyclidine Screen Negative Ur Amphetamines Screen Negative MDMA (Ecstasy) Screen Negative Benzodiazepines Screen Positive Cocaine Screen Negative U Marijuana (THC) Screen Positive Alcohol, Quantitative 03/06/17 03/07/17 03/07/17 23:31 05:20 05:20 WBC 7.1 D RBC 3.92 L Hgb 11.3 L D Hct 33.6 L MCV 85.6 MCHC 33.7 RDW 13.6 Plt Count 202 MPV 8.2 Neutrophils % 54.4 D Lymphocytes % 33.6 D Monocytes % 8.4 Eosinophils % 3.2 D Basophils % 0.4 INR PTT (Actin FS) Puncture Site Right radial ABG pH 7.38 ABG pCO2 at Pt Temp 45.1 H ABG pO2 at Pt Temp 179.0 H* ABG HCO3 25.9 ABG O2 Sat (Measured) 99.7 H* ABG O2 Content 18.7 ABG Base Excess 0.9 Stewart Test Positive O2 Delivery Device Vent Oxygen Flow Rate 50% Vent Mode Ac Vent Rate 16 Mechanical Rate Y PEEP 5.0 Pressure Support Vent 400 Sodium 141 Potassium 3.6 Chloride 105 Carbon Dioxide 27 Anion Gap 9 BUN 12 D Creatinine 0.8 Creat Clearance w eGFR > 60 Random Glucose 82 Lactic Acid Calcium 7.9 L Total Bilirubin 0.6 AST 18 D ALT 15 D Alkaline Phosphatase 68 D Creatine Kinase Troponin I Total Protein 5.5 L D Albumin 2.9 L D Urine Color Urine Appearance Urine pH Ur Specific [place] Urine Protein Urine Glucose (UA) Urine Ketones Urine Blood Urine Nitrite Urine Bilirubin Urine Urobilinogen Ur Leukocyte Esterase Salicylates Opiates Screen Methadone Screen Acetaminophen Barbiturate Screen Phencyclidine Screen Ur Amphetamines Screen MDMA (Ecstasy) Screen Benzodiazepines Screen Cocaine Screen U Marijuana (THC) Screen Alcohol, Quantitative 03/07/17 09:40 WBC RBC Hgb Hct MCV MCHC RDW Plt Count MPV Neutrophils % Lymphocytes % Monocytes % Eosinophils % Basophils % INR PTT (Actin FS) Puncture Site ABG pH ABG pCO2 at Pt Temp ABG pO2 at Pt Temp ABG HCO3 ABG O2 Sat (Measured) ABG O2 Content ABG Base Excess Stewart Test O2 Delivery Device Oxygen Flow Rate Vent Mode Vent Rate Mechanical Rate PEEP Pressure Support Vent Sodium Potassium Chloride Carbon Dioxide Anion Gap BUN Creatinine Creat Clearance w eGFR Random Glucose Lactic Acid 0.720 Calcium Total Bilirubin AST ALT Alkaline Phosphatase Creatine Kinase Troponin I Total Protein Albumin Urine Color Urine Appearance Urine pH Ur Specific [place] Urine Protein Urine Glucose (UA) Urine Ketones Urine Blood Urine Nitrite Urine Bilirubin Urine Urobilinogen Ur Leukocyte Esterase Salicylates Opiates Screen Methadone Screen Acetaminophen Barbiturate Screen Phencyclidine Screen Ur Amphetamines Screen MDMA (Ecstasy) Screen Benzodiazepines Screen Cocaine Screen U Marijuana (THC) Screen Alcohol, Quantitative Problem List - Problems (1) Acute hypoxemic respiratory failure Code(s): J96.01 - ACUTE RESPIRATORY FAILURE WITH HYPOXIA (2) Heroin overdose Code(s): T40.1X1A - POISONING BY HEROIN, ACCIDENTAL (UNINTENTIONAL), INIT ENCNTR (3) Heroin abuse Code(s): F11.10 - OPIOID ABUSE, UNCOMPLICATED Assessment/Plan Wean to extubate Aspiration precautions Monitor off sedation VTE prophyalxis Dr Rao critical care time spent in reviewing chart, evaluating patient and formulating plan 35 min
[2017-03-07 12:25] VITALS: BP 132/95; PULSE 85; TEMP 98
--- NOTE | 2017-03-07 16:16 | EKG ---
Test Reason : Blood Pressure : / mmHG Vent. Rate : 106 BPM Atrial Rate : 106 BPM P-R Int : 134 ms QRS Dur : 090 ms QT Int : 346 ms P-R-T Axes : 027 038 019 degrees QTc Int : 459 ms SINUS TACHYCARDIA OTHERWISE NORMAL ECG WHEN COMPARED WITH ECG OF 27-MAR-2012 23:20, NO SIGNIFICANT CHANGE WAS FOUND Confirmed by DARREN GELLER MD ([id number]) on 03/07/2017 4:16:31 PM Referred By: Confirmed By:DARREN GELLER MD
== END 2017-03-07 13:30 | disposition left against medical advice (07) | DRG 816 ==
LOC: JER 15:46 → JERBED 15:55 → JICU 21:23
PROVIDERS: ADMIT Internal Medicine; ATTEND Internal Medicine
PROC: 5A1935Z Respiratory Ventilation, Less than 24 Consecutive Hours (ICD-10-PCS; principal; 2017-03-06)
PROC: 0BH17EZ Insertion of Endotracheal Airway into Trachea, Via Natural or Artificial Opening (ICD-10-PCS; 2017-03-06)
DX: T40.1X4A Poisoning by heroin, undetermined, initial encounter (principal); F11.10 Opioid abuse, uncomplicated; J96.01 Acute respiratory failure with hypoxia; J18.9 Pneumonia, unspecified organism; T42.4X4A Poisoning by benzodiazepines, undetermined, initial encounter; R00.0 Tachycardia, unspecified
CPT/HCPCS: 36415; 36600; 71010-TC; 80053; 80307; 81003; 82550; 82803; 83605; 84484; 85025; 85610; 85730; 87040; 87086; 93005; 93010; 94002; 99285-25; J1644